=== PATIENT | female | born 1985 | race Caucasian/White ===

== ENCOUNTER 2020-05-25 22:23 | Emergency (ER) | payer OTHER, SELFPAY ==
[2020-05-25 22:28] VITALS: BP 120/75; PULSE 84; RESP 18; TEMP 36.7; O2SAT 95; BMI 21.4
--- NOTE | 2020-05-25 23:34 | ECG_ITS ---
Test Reason : PALP Blood Pressure : / mmHG Vent. Rate : 069 BPM Atrial Rate : 069 BPM P-R Int : 152 ms QRS Dur : 076 ms QT Int : 394 ms P-R-T Axes : 024 029 012 degrees QTc Int : 422 ms Normal sinus rhythm Normal ECG No previous ECGs available Referred By: Waldo Bowen Electronically Signed By:ANGELO WHALEY MD
--- NOTE | 2020-05-25 23:48 | ED.ARRPALP ---
HPI - Arrhythmia/Palpitations General Chief Complaint: Arrhythmia/Palpitations Stated Complaint: HEART PALPITATIONS Time Seen by Provider: 05/25/20 23:25 Source: patient Mode of arrival: ambulatory Limitations: no limitations History of Present Illness HPI narrative: 34-year-old female came in mainly to check on her recent surgery of breast augmentation done 05/01/2020. Patient is complaining of feeling both breast after surgery are all was tends and painful, sensitive painful scar, but patient declined any fever chills or drainage from the incision, described the pain as a dull pain at the wrist is distended, constant mild, no radiation, no other associated symptoms. Patient also felt heart palpitation ( patient has a condition of mitral valve prolapse ), patient declined any chest pain. Patient stated that the palpitation is better now. Related Data Allergies Allergy/AdvReac Type Severity Reaction Status Date / Time No Known Allergies Allergy Verified 05/25/20 23:25 Review of Systems Review of Systems: All other systems are reviewed and are negative Constitutional: Reports as per HPI and Reports no additional constitutional complaints Eyes: Reports as per HPI and Reports no additional eye complaints Reports system reviewed and no additional complaints, except as documented Cardiovascular: Reports as per HPI and Reports no additional cardiovascular complaints Respiratory: Reports as per HPI and Reports no additional respiratory complaints Gastrointestinal: Reports as per HPI and Reports no additional gastrointestinal complaints Genitourinary: Reports no additional female genitourinary complaints Musculoskeletal: Reports no additional musculoskeletal complaints Skin/Breast: Reports system reviewed and no additional complaints, except as docu Psychiatric: Reports no additional psychiatric complaints Endocrine: Reports no additional endocrine complaints Hematologic/Lymphatic: Reports no additional hematologic/lymphatic complaints Allergic/Immunologic: Reports no additional allergic/immunologic complaints Reports system reviewed and no additional complaints, except as documented and Reports Abnormal speech present [facility] Past Medical History Medical History (Updated 05/26/20 @ 01:44 by Waldo Bowen MD) Mitral valve prolapse Surgical History (Updated 05/25/20 @ 23:53 by Waldo Bowen MD) H/O breast augmentation Social History Social History Alcohol intake: current Alcohol intake frequency: a few times a month Smoking Status: Former smoker Use of substances other than those prescribed or required for medical reasons: No Advance Directives: No Advance Directives Information Provided: No Physical Exam Vital Signs: Vital Signs: Vital Signs Temp Pulse Resp BP Pulse Ox 05/25/20 22:28 98.1 F 84 18 120/75 95 Body Mass Index 21.4 vital signs have been reviewed as normal and appeared to be correct. Blood pressure normal. Heart rate normal. Respiration rate normal. Temperature normal. Oxygen saturation normal. Appearance: Alert. Oriented X3. No acute distress. Head: Normal external exam. Normocephalic. Atraumatic. No Ga signs noted. No raccoon eyes noted Eyes: PERRLA. EOMI. Conjunctiva and sclera normal. Eyelids normal. ENT: EAC normal. TM's Normal. Pharynx normal. Uvula midline. Moist mucous membranes. No trismus noted. No drooling noted. No muffled voice noted. Neck: Normal inspection. Neck supple. FROM. No adenopathy. Thyroid Normal. No meningeal signs. No neck mass noted. CVS: Normal heart rate and rhythm. Heart sound normal. No murmurs noted. Pulses normal throughout. Respiratory: No respiratory distress. Painless inspiration. Breath sounds normal. No wheezes/rales/rhonchi noted. Chest nontender. No accessory muscle usage noted or decreased air movement noted. Abdomen: Soft and nontender. Bowel sounds normal in all 4 quadrants. No distention noted. No organomegaly noted. No visible injury noted. Back: No CVA tenderness. Full range of motion noted. Skin: Skin warm and dry. Normal skin color. Normal skin turgor. No rashes/lesions/lacerations noted. Extremities: No lower extremity edema. Extremities exhibit normal range of motion. Extremities nontender. Neuro: Oriented X 3. No motor deficit. No sensory deficit. Reflexes normal. Breasts: in present of female seed and fertilizer specialist ( RN. David) status post breast augmentation 3 weeks ago, incision appears dry, clean, and intact with no discharge, right breast fullness is more than the left side. Overall both breast are sensitive and tender to palpation, no lymphadenopathy, no sign of cellulitis is appreciated. Course Course Course Narrative: 34-year-old female with history of mitral valve prolapse, presented with palpitation earlier today that resolved now no chest pain, patient also is concerned about her recent surgery of breast augmentation way about infection or allergy to the implanted material. Will check EKG, labs, reassess. MDM - Arrhythmia/Palpitations MDM Narrative Medical decision making narrative: 34-year-old female status post breast augmentation 3 weeks ago, patient presented today worried about infection because of persistent pain, patient also presented with palpitation. 1. Normal EKG with normal sinus rhythm. 2. patient has a normal white count, normal sed rate, normal CPR. Lab Data Result diagrams: 05/25/20 23:58 05/25/20 23:58 Labs: Lab Results 05/25/20 05/25/20 05/25/20 Range/Units 23:58 23:58 23:58 WBC 7.4 (4.8-10.8) X10*3/uL RBC 4.60 (4.20-5.50) X10*6/uL Hgb 13.9 (12.0-16.0) g/dl Hct 41.7 (37-47) % MCV 90.7 (80-98) fL MCH 30.2 (27.0-33.0) pg MCHC 33.3 (31.0-35.0) g/dl RDW 12.7 (11.0-16.0) % Plt Count 225 (160-400) X10*3/uL MPV 10.7 (9.4-12.3) fL Immature Gran % (Auto) 0.3 (0.0-0.4) % Neut % (Auto) 50.0 (45-73) % Lymph % (Auto) 37.1 (20-40) % [place] % (Auto) 9.4 (2-11) % Eos % (Auto) 2.7 (0-4) % Baso % (Auto) 0.5 (0-2) % Lymph # (Auto) 2.8 (1.2-4.9) X10*3/uL [place] # (Auto) 0.7 (0.1-1.2) X10*3/uL Eos # (Auto) 0.2 (0.0-0.4) X10*3/uL Baso # (Auto) 0.0 (0.0-0.2) X10*3/uL Abs Immat Gran (auto) 0.02 (0.00-0.03) X10*3/uL Absolute Neuts (auto) 3.7 (2.0-8.3) X10*3/uL Absolute Nucleated RBC 0.000 (0.0-0.012) X10*3/uL Nucleated RBC % (auto) 0.0 (0.0-0.2) /100WBC Smear Tech's Comments VERIFIED ESR 16 (0-20) MM/HR Sodium (135-145) mmol/L Potassium (3.3-5.1) mmol/l Chloride (96-108) mmol/L Carbon Dioxide (22-29) mmol/L Anion Gap (12-20) BUN (9-16) mg/dL Creatinine (0.5-1.4) mg/dL Estim Creat Clear Calc Estimated GFR Random Glucose (60-115) mg/dL Calcium (8.4-10.2) mg/dL Magnesium (1.6-2.6) mg/dL C-Reactive Protein 0.23 (< or = 0.50) mg/dL 05/25/20 Range/Units 23:58 WBC (4.8-10.8) X10*3/uL RBC (4.20-5.50) X10*6/uL Hgb (12.0-16.0) g/dl Hct (37-47) % MCV (80-98) fL MCH (27.0-33.0) pg MCHC (31.0-35.0) g/dl RDW (11.0-16.0) % Plt Count (160-400) X10*3/uL MPV (9.4-12.3) fL Immature Gran % (Auto) (0.0-0.4) % Neut % (Auto) (45-73) % Lymph % (Auto) (20-40) % [place] % (Auto) (2-11) % Eos % (Auto) (0-4) % Baso % (Auto) (0-2) % Lymph # (Auto) (1.2-4.9) X10*3/uL [place] # (Auto) (0.1-1.2) X10*3/uL Eos # (Auto) (0.0-0.4) X10*3/uL Baso # (Auto) (0.0-0.2) X10*3/uL Abs Immat Gran (auto) (0.00-0.03) X10*3/uL Absolute Neuts (auto) (2.0-8.3) X10*3/uL Absolute Nucleated RBC (0.0-0.012) X10*3/uL Nucleated RBC % (auto) (0.0-0.2) /100WBC Smear Tech's Comments ESR (0-20) MM/HR Sodium 138 (135-145) mmol/L Potassium 4.6 (3.3-5.1) mmol/l Chloride 105 (96-108) mmol/L Carbon Dioxide 22 (22-29) mmol/L Anion Gap 16 (12-20) BUN 7 L (9-16) mg/dL Creatinine 0.76 (0.5-1.4) mg/dL Estim Creat Clear Calc 88.3 Estimated GFR > 60 Random Glucose 92 (60-115) mg/dL Calcium 9.4 (8.4-10.2) mg/dL Magnesium 2.3 (1.6-2.6) mg/dL C-Reactive Protein (< or = 0.50) mg/dL ECG Data Interpretation: Normal sinus rhythm at 69 beats per minute, normal intervals, no ST-T changes. Discharge Plan Discharge Clinical Impression: Mitral valve prolapse, Heart palpitations, Breast pain Patient Disposition: Home, Self-Care Instructions: Heart Palpitations (ED) Referrals: Loreta El MD [Physician] - 2 days
[2020-05-26 00:12] LABS: MANUAL DIFF FLAG SCAN; Mean Corpuscular Volume 90.7 fL (80-98); Mean Platelet Volume 10.7 fL (9.4-12.3); Monocytes Percent Auto 9.4 % (2-11); PLT CLUMP 1; SCAN SMEAR FLAG 1
[2020-05-26 00:14] LABS: Basophils Percent Auto 0.5 % (0-2); Eosinophils Absolute Auto 0.2 X10*3/uL (0.0-0.4); Eosinophils Percent Auto 2.7 % (0-4); Hematocrit 41.7 % (37-47); Hemoglobin 13.9 g/dl (12.0-16.0); Imm Gran Abs Auto 0.02 X10*3/uL (0.00-0.03); Imm Gran Pct Auto 0.3 % (0.0-0.4); Lymphocytes Absolute Auto 2.8 X10*3/uL (1.2-4.9); Lymphocytes Percent Auto 37.1 % (20-40); Mean Corpuscular HGB Conc 33.3 g/dl (31.0-35.0); Mean Corpuscular Hemoglobin 30.2 pg (27.0-33.0); Monocytes Absolute Auto 0.7 X10*3/uL (0.1-1.2); Neutrophils Absolute Auto 3.7 X10*3/uL (2.0-8.3); Platelet Count 225 X10*3/uL (160-400); Red Cell Distribution Width 12.7 % (11.0-16.0); White Blood Count 7.4 X10*3/uL (4.8-10.8)
[2020-05-26 00:42] LABS: C Reactive Protein 0.23 mg/dL (< or = 0.50); SLIDE REVIEW VERIFIED
[2020-05-26 00:50] VITALS: PULSE 82
--- NOTE | 2020-05-26 00:52 | PC.NURSE ---
pt arrives from home for breast pain after plastic surgery approx 1 month ago. left breast seems more enlarged than other and is more painful for patient. pt scars per patient are ooozing puss. no puss noted at this time. pt sdtates she went to [facility] to get breasts done and had no complications during surgery. negative wbc. ekg unremarkable. pt will most likely need to follow up with surgeon here. pt aware and agreeable. [pain is 7/10 worse on palpation
[2020-05-26 00:55] LABS: Anion Gap 16 (12-20); Blood Urea Nitrogen 7 mg/dL (9-16); Calcium 9.4 mg/dL (8.4-10.2); Carbon Dioxide 22 mmol/L (22-29); Chloride 105 mmol/L (96-108); Creatinine Clr Calc Pharmacy 88.3; Estimated Glomerular Filt Rate > 60; Glucose Random 92 mg/dL (60-115); Magnesium 2.3 mg/dL (1.6-2.6); Potassium 4.6 mmol/l (3.3-5.1); Sodium 138 mmol/L (135-145)
[2020-05-26 01:33] LABS: Erythrocyte Sedimentation Rate 16 MM/HR (0-20)
== END 2020-05-26 01:49 | disposition home or self-care (01) ==
PROVIDERS: Emergency Provider Emergency Medicine
DX: I34.1 Nonrheumatic mitral (valve) prolapse (principal); R00.2 Palpitations; N64.4 Mastodynia; Z98.86 Personal history of breast implant removal
CPT/HCPCS: 36415; 80048; 83735; 85025; 85652; 86140; 93005; 99283; 99284